=== PATIENT | male | born 1990 | race Asian ===

== ENCOUNTER 2017-08-19 08:10 | Outpatient (CLI) | payer BC | END 2017-08-19 08:11 | disposition home or self-care (01) | LOC: BICULT 08:10 | PROVIDERS: ATTEND Student in an Organized Health Care Education/Training Program | DX: R79.89 Other specified abnormal findings of blood chemistry (principal) | CPT/HCPCS: 76705 ==

== ENCOUNTER 2023-01-27 09:28 | Emergency (ER) | payer OTHER, BC ==
[2023-01-27] MEDS ORDERED: Ibuprofen 200 MG TAB ONE (11:11)
== END 2023-01-27 13:18 | disposition home or self-care (01) ==
LOC: ERS 09:28
DX: Z04.1 Encounter for examination and observation following transport accident (principal); V89.2XXA Person injured in unspecified motor-vehicle accident, traffic, initial encounter
CPT/HCPCS: 70450; 71045; 72125